=== PATIENT | female | born 1970 | race Caucasian/White ===

== ENCOUNTER 2025-03-19 16:47 | Emergency (ER) | payer OTHER ==
[~2025-03-19] VITALS: Ht 160 cm; Wt 60.8 kg
[2025-03-19 16:49] VITALS: TEMP 36.7; O2SAT 100
[2025-03-19 17:22] LABS: BASOPHILS % 0.6 % (0.0-2.0); EOSINOPHILS % 5.7 % (0.0-5.0); HEMATOCRIT. 37.6 % (36.0-48.0); HEMOGLOBIN. 12.6 g/dL (12.0-16.0); LYMPHOCYTES % 34.7 % (20.0-50.0); MEAN PLATELET VOLUME 7.7 fl (7.4-10.4); MONOCYTES % 5.9 % (2.0-8.0); NEUTROPHILS % 53.1 % (40.0-76.0); PLATELET 260 x1000/uL (130-400); RED BLOOD CELL COUNT 4.34 mill/uL (4.2-5.4); RED CELL DISTRIBUTION WIDTH 14.2 % (11.6-14.6)
[2025-03-19 17:22] LABS: CLARITY URINE CLEAR (CLEAR); COLOR URINE YELLOW (YELLOW); GLUCOSE URINE NEGATIVE (NEGATIVE); KETONES URINE NEGATIVE (NEGATIVE); LEUKOCYTE ESTERASE URINE NEGATIVE (NEGATIVE); NITRITE URINE NEGATIVE (NEGATIVE); OCCULT BLOOD URINE NEGATIVE (NEGATIVE); PH URINE 5.5 (4.5-8.0); PROTEIN URINE NEGATIVE (NEGATIVE); SPECIFIC GRAVITY URINE 1.009 (1.005-1.030); UROBILINOGEN URINE 0.2 E.U./dL (0.2-1.0)
[2025-03-19] MEDS: AMLODIPINE 5MG TABLET PO ONE (17:26)
[2025-03-19 17:34] LABS: CREATININE 0.8 mg/dL (0.6-1.0)
[2025-03-19 17:35] LABS: TROPONIN I HIGH SENSITIVITY < 4 ng/L (3.0-34); UREA NITROGEN BLOOD 16 mg/dL (9-23)
[2025-03-19] MEDS ORDERED: ONDA4TAB50 MT (19:10)
[2025-03-19] MEDS ORDERED: AMLO5TAB88 MT (19:10)
[2025-03-19] MEDS: ONDANSETRON 4MG ODT PO ONE (19:20)
[2025-03-19] MEDS: ACETAMINOPHEN 325MG TABLET PO ONE (19:20)
[2025-03-19 19:40] VITALS: BP 175/49; PULSE 74; RESP 18; O2SAT 100
[2025-03-19] MEDS ORDERED: IOHEXOL-300 100 ML BOTTLE ONE (20:20)
== END 2025-03-19 19:43 | disposition home or self-care (01) ==
LOC: ER 16:47 → CMPBEDREQ 03-20 09:10
DX: K29.70 Gastritis, unspecified, without bleeding (principal); R10.30 Lower abdominal pain, unspecified; R11.0 Nausea; E78.00 Pure hypercholesterolemia, unspecified; I10 Essential (primary) hypertension; Z90.49 Acquired absence of other specified parts of digestive tract; Z90.710 Acquired absence of both cervix and uterus; Z79.899 Other long term (current) drug therapy
CPT/HCPCS: 99285; 74177; 80048; 81003; 85025; 84484; 36415; 93005; Q9967; Q0162